=== PATIENT | female | born 1980 | race Caucasian/White ===

== ENCOUNTER 2018-08-19 18:54 | Outpatient (CLI) | payer MEDICAID ==
[2018-08-19 23:35] LABS: IRON 30 ug/dl (35-150)
[2018-08-19 23:37] LABS: HEMOGLOBIN A1C 6.1 % (0-5.9)
[2018-08-19 23:44] LABS: % IRON SATURATION 6 % SAT (22-52); TOTAL IRON BINDING CAPACITY 507 ug/dl (241-421)
[2018-08-20 00:12] LABS: FERRITIN 9.1 ng/ml (6.2-137.0)
== END 2018-08-19 23:12 | disposition home or self-care (01) ==
LOC: OBT 18:54 → L-D 18:56
DX: O36.8330 Maternal care for abnormalities of the fetal heart rate or rhythm, third trimester, not applicable or unspecified (principal); O09.43 Supervision of pregnancy with grand multiparity, third trimester; O09.523 Supervision of elderly multigravida, third trimester; Z3A.36 36 weeks gestation of pregnancy
CPT/HCPCS: 76815; 76818; 82728; 83036; 83540

== ENCOUNTER 2018-08-24 20:50 | Outpatient (CLI) | payer MEDICAID | END 2018-08-24 22:20 | disposition home or self-care (01) | LOC: OBT 20:50 → L-D 20:50 → OBT 22:20 | DX: O47.1 False labor at or after 37 completed weeks of gestation (principal); O09.523 Supervision of elderly multigravida, third trimester; Z3A.38 38 weeks gestation of pregnancy | CPT/HCPCS: Z7500 ==

== ENCOUNTER 2018-09-01 12:58 | Inpatient (IN) | payer MEDICAID ==
[2018-09-01] MEDS ORDERED: LIDOCAINE 1% (MPF) 30 ML INJ INJ (15:00)
[2018-09-01] MEDS ORDERED: OXYTOCIN 30 UNITS/LR 500 ML IV ×2 (15:00)
[2018-09-01] MEDS ORDERED: BUTORPHANOL 2 MG INJ IV (15:00)
[2018-09-01] MEDS ORDERED: IBUPROFEN 600 MG TAB PO (15:00)
[2018-09-01] MEDS: LACTATED RINGER'S 1,000 ML IV ×3 (15:19→21:10)
[2018-09-01] MEDS: OXYTOCIN 30 UNITS/LR 500 ML IV (15:30)
[2018-09-01] MEDS: AMPICILLIN 2 GM/NS (PMX) 100 ML IV (15:31)
[2018-09-01 15:50] LABS: ADD MAN DIFF? NO
[2018-09-01 15:52] LABS: WHITE BLOOD COUNT 7.4 10^3/ul (4.8-10.8)
[2018-09-01 15:52] LABS: BASOPHILS % 0.3 % (0.0-2.0); EOSINOPHILS % 0.3 % (0.0-7.0); HEMATOCRIT 28.7 % (37.0-47.0); HEMOGLOBIN 8.8 g/dl (12.0-16.0); LYMPHOCYTES # 1.4 10^3/ul (0.8-2.9); LYMPHOCYTES % 19.3 % (15.0-51.0); MEAN CORPUSCULAR HEMOGLOBIN 23.6 pg (29.0-33.0); MEAN CORPUSCULAR HGB CONC 30.7 g/dl (32.0-37.0); MEAN CORPUSCULAR VOLUME 76.9 fl (82.0-101.0); MEAN PLATELET VOLUME 10.7 fl (7.4-10.4); MONOCYTE # 0.6 10^3/ul (0.3-0.9); MONOCYTES % 8.4 % (0.0-11.0); NEUTROPHIL # 5.2 10^3/ul (1.6-7.5); NEUTROPHILS % 70.6 % (39.0-77.0); PLATELET COUNT 273 10^3/UL (140-415); RED BLOOD COUNT 3.73 10^6/ul (4.20-5.40); RED CELL DISTRIBUTION WIDTH 19.6 % (11.5-14.5)
[2018-09-01 16:12] LABS: PROTIME 12.3 Sec (11.9-14.9)
[2018-09-01 16:53] LABS: HEPATITIS B SURFACE ANTIGEN NEGATIVE (NEGATIVE)
[2018-09-01] MEDS: AMPICILLIN 1 GM/NS (PMX) 50 ML IV ×2 (19:33→23:45)
[2018-09-01] MEDS ORDERED: FENTAnyl 2MCG/ML-ROPIV 0.2% 100 ML (20:20)
[2018-09-01] MEDS ORDERED: ONDANSETRON 4 MG INJ IV (21:30)
[2018-09-01] MEDS ORDERED: NALOXONE (0.4 MG/ML) INJ IV (21:30)
[2018-09-01] MEDS ORDERED: DIPHENHYDRAMINE 50 MG INJ IV (21:30)
[2018-09-01] MEDS ORDERED: FENTAnyl 2MCG/ML-ROPIV 0.2% 100 ML BAG EPI (21:30)
[2018-09-02] MEDS: METHYLERGONOVINE 0.2 MG INJ IM (00:26)
[2018-09-02] MEDS: OXYTOCIN 30 UNITS/LR 500 ML IV (00:42)
[2018-09-02] MEDS: CARBOPROST 250 MCG INJ IM (01:29)
[2018-09-02] MEDS: MISOPROSTOL 200 MCG TAB PR (01:29)
[2018-09-02] MEDS ORDERED: CARBOPROST 250 MCG INJ IM (03:00)
[2018-09-02] MEDS ORDERED: ACETAMINOPHEN 325 MG TAB PO (03:00)
[2018-09-02] MEDS ORDERED: MISOPROSTOL 200 MCG TAB PR (03:00)
[2018-09-02] MEDS ORDERED: HYDROCODONE/APAP (5/325) TAB PO (03:00)
[2018-09-02] MEDS ORDERED: METHYLERGONOVINE 0.2 MG INJ IM (03:00)
[2018-09-02] MEDS: LACTATED RINGER'S 1,000 ML IV* (04:21)
[2018-09-02] MEDS: IBUPROFEN 600 MG TAB PO ×3 (05:39→18:00)
[2018-09-02] MEDS: SENNA/DOCUSATE NA (8.6MG/50MG) TAB PO ×2 (09:00→21:00)
[2018-09-02 17:46] LABS: RHOGAM PROFILE 1 1
[2018-09-02 19:51] LABS: RAPID PLASMA REAGIN NONREACTIVE (NR)
[2018-09-03] MEDS: IBUPROFEN 600 MG TAB PO ×5 (00:01→23:23)
[2018-09-03 07:19] LABS: ADD MAN DIFF? NO
[2018-09-03 07:23] LABS: BASOPHILS % 0.3 % (0.0-2.0); EOSINOPHILS # 0.1 10^3/ul (0.0-0.5); EOSINOPHILS % 1.2 % (0.0-7.0); HEMATOCRIT 28.5 % (37.0-47.0); HEMOGLOBIN 8.7 g/dl (12.0-16.0); LYMPHOCYTES # 2.1 10^3/ul (0.8-2.9); LYMPHOCYTES % 21.5 % (15.0-51.0); MEAN CORPUSCULAR HEMOGLOBIN 23.6 pg (29.0-33.0); MEAN CORPUSCULAR HGB CONC 30.5 g/dl (32.0-37.0); MEAN CORPUSCULAR VOLUME 77.2 fl (82.0-101.0); MONOCYTE # 0.7 10^3/ul (0.3-0.9); MONOCYTES % 7.2 % (0.0-11.0); NEUTROPHIL # 6.8 10^3/ul (1.6-7.5); NEUTROPHILS % 68.6 % (39.0-77.0); PLATELET COUNT 256 10^3/UL (140-415); RED BLOOD COUNT 3.69 10^6/ul (4.20-5.40)
[2018-09-03 07:23] LABS: WHITE BLOOD COUNT 9.9 10^3/ul (4.8-10.8)
[2018-09-03] MEDS: SENNA/DOCUSATE NA (8.6MG/50MG) TAB PO ×2 (09:34→20:42)
[2018-09-03] MEDS: INFLUENZA VIRUS VACCINE 0.5 ML (DISPENSING) IM* (11:32)
[2018-09-04] MEDS: IBUPROFEN 600 MG TAB PO ×2 (05:54→11:18)
[2018-09-04] MEDS: SENNA/DOCUSATE NA (8.6MG/50MG) TAB PO (09:04)
[2018-09-04] MEDS: DIPHTH/TET/ACEL PERTUSS (ADULT) 0.5 ML VIAL IM* (09:05)
== END 2018-09-04 14:30 | disposition home or self-care (01) | DRG 806 ==
LOC: OBT 12:58 → PP1 09-02 02:23 → L-D 12:59 → PP1 09-02 02:24 → OBT 14:33 → L-D 14:33
PROVIDERS: Obstetrics & Gynecology
PROC: 3E033VJ Introduction of Other Hormone into Peripheral Vein, Percutaneous Approach (ICD-10-PCS; 2018-09-01)
PROC: 10E0XZZ Delivery of Products of Conception, External Approach (ICD-10-PCS; principal; 2018-09-02)
PROC: 0HQ9XZZ Repair Perineum Skin, External Approach (ICD-10-PCS; 2018-09-02)
DX: O41.03X0 Oligohydramnios, third trimester, not applicable or unspecified (principal); O72.1 Other immediate postpartum hemorrhage; Z37.0 Single live birth; D62 Acute posthemorrhagic anemia; O90.81 Anemia of the puerperium; O70.0 First degree perineal laceration during delivery; Z3A.40 40 weeks gestation of pregnancy
CPT/HCPCS: 62319; 76815; 76818; 85025; 85610; 85730; 86592; 86850; 86885; 86900; 86901; 87340; 88307; 90715